=== PATIENT | female | born 2000 | race American Indian/Alaskan Native ===

== ENCOUNTER 2019-09-07 19:30 | Emergency (ER) | payer SELFPAY ==
[2019-09-07 20:35] LABS: HCG Qualitative,Urine Negative (Negative)
--- NOTE | 2019-09-07 21:07 | XRay Report ---
CHEST 2 VIEWS INDICATION / CLINICAL INFORMATION: cough. COMPARISON: None available. FINDINGS: SUPPORT DEVICES: None. HEART / MEDIASTINUM: No significant abnormality. LUNGS / PLEURA: No significant pulmonary or pleural abnormality. No pneumothorax. ADDITIONAL FINDINGS: No significant additional findings. IMPRESSION: 1. No acute findings. Signer Name: Siena Wood MD Signed: 09/07/2019 9:03 PM Workstation Name: [id number]
--- NOTE | 2019-09-07 21:41 | Emergency Department Report ---
ED General Adult HPI - General Chief complaint: Upper Respiratory Infection Stated complaint: CHEST PAIN, LOSS OF TASTE AND SMELL PUI?: Yes Time Seen by Provider: 09/07/19 21:03 Source: patient, RN notes reviewed Mode of arrival: Ambulatory Limitations: No Limitations - History of Present Illness Initial comments: During the entire history and physical examination, I am chaperoned by nurse Sridevi Yen During the entire history and physical examination, I had on complete personal protective equipment. Patient is a 18-year-old female, who is not known to myself previously, who does not have a local primary care doctor, who denies chronic medical conditions, who endorses recreational cannabis consumption, states that she is not , and states that she has not delivered or given within the past 6 weeks, presenting to the ER with acute on chronic cough x1 week, no phlegm production, left-sided breast wall pain, intermittent, for a few days, which does not radiate to the back, arms or neck, without vomiting, diaphoresis or exertional shortness of breath, without DVT or pulmonary embolism risk factors, who also describes painless loss of taste and smell x2 days. There is no complaint of headache, neck pain, abdominal pain, dysuria, focal extremity weakness and or numbness. The patient does admit that she has not been self isolating and self quarantine during the current coronavirus pandemic. Left-sided breast wall pain is throbbing, does not radiate anywhere, increases with palpation and decreases with rest. -: Gradual, days(s), week(s), month(s) Severity scale (0 -10): 6 Quality: other Consistency: other Improves with: other Worsens with: other Associated Symptoms: other - Related Data Previous Rx's Medication Instructions Recorded Last Taken Type Albuterol Sulfate [Proair 90 mcg IH Q4HR PRN #2 [email or web address] 09/07/19 Unknown Rx Respiclick] Allergies Allergy/AdvReac Type Severity Reaction Status Date / Time No Known Allergies Allergy Unverified 11/29/18 16:27 ED Review of Systems ROS: Stated complaint: CHEST PAIN, LOSS OF TASTE AND SMELL Other details as noted in HPI Constitutional: denies: fever Eyes: denies: eye discharge ENT: denies: epistaxis Respiratory: cough Cardiovascular: denies: syncope Gastrointestinal: denies: abdominal pain Genitourinary: denies: dysuria Musculoskeletal: myalgia Skin: as per HPI Neurological: as per HPI, weakness Psychiatric: as per HPI Hematological/Lymphatic: as per HPI ED Past Medical Hx - Past Medical History Previous Medical History?: No - Surgical History Past Surgical History?: No - Social History Smoking Status: Never Smoker Substance Use Type: Alcohol - Medications Home Medications: Home Medications Medication Instructions Recorded Confirmed Last Taken Type Albuterol Sulfate [Proair 90 mcg IH Q4HR PRN #2 [email or web address] 09/07/19 Unknown Rx Respiclick] ED Physical Exam - General Limitations: No Limitations General appearance: alert, in no apparent distress - Head Head exam: Present: atraumatic, normocephalic - Eye Eye exam: Present: normal appearance, EOMI. Absent: nystagmus - ENT ENT exam: Present: normal exam, normal orophraynx, mucous membranes moist, normal external ear exam - Neck Neck exam: Present: normal inspection, full ROM. Absent: tenderness, meningismus - Respiratory Respiratory exam: Present: normal lung sounds bilaterally, chest wall tenderness, other (There is left-sided reproducible breast wall tenderness and thoracic rib wall tenderness. There is no redness, pus or streaking. There are no vesicles. Chaperoned by nurse Vivek). Absent: respiratory distress - Cardiovascular Cardiovascular Exam: Present: regular rate, normal rhythm, normal heart sounds. Absent: bradycardia, irregular rhythm, systolic murmur, diastolic murmur, rubs, gallop - GI/Abdominal GI/Abdominal exam: Present: soft. Absent: distended, tenderness, guarding, rebound, rigid, pulsatile mass - Extremities Exam Extremities exam: Present: normal inspection, full ROM, other (2+ pulses noted in the bilateral upper and lower extremities. There is no palpable cord. negative Homans sign. Muscular compartments are soft. The pelvis is stable.). Absent: pedal edema, calf tenderness - Back Exam Back exam: Present: normal inspection. Absent: tenderness, CVA tenderness (R), CVA tenderness (L), paraspinal tenderness, vertebral tenderness - Neurological Exam Neurological exam: Present: alert, oriented X3, normal gait, other (No facial droop. Tongue midline. Extraocular movements intact bilaterally. Facial sensation intact to light touch in V1, V2, V3 distribution bilaterally. 5 and a 5 strength in 4 extremities. Sensation intact to light touch in 4 extremities.). Absent: motor sensory deficit - Psychiatric Psychiatric exam: Present: normal affect, normal mood - Skin Skin exam: Present: warm, dry, intact, normal color. Absent: rash ED Course Vital Signs 09/07/19 19:32 Temperature 97.6 F Pulse Rate 95 H Respiratory 18 Rate Blood Pressure 131/76 [Right] O2 Sat by Pulse 100 Oximetry ED Medical Decision Making - Lab Data Vital Signs 09/07/19 19:32 Temperature 97.6 F Pulse Rate 95 H Respiratory 18 Rate Blood Pressure 131/76 [Right] O2 Sat by Pulse 100 Oximetry - EKG Data -: EKG Interpreted by Ri - EKG Data 09/07/19 21:39 There is no prior EKG available for comparison. Sinus rhythm, 88 bpm, normal axis, normal intervals, high left ventricular voltage, minimal motion artifact. The EKG is unremarkable. The EKG is not a STEMI. - Radiology Data Radiology results: report reviewed, image reviewed X-ray of the chest is negative for acute disease - Medical Decision Making Differential diagnosis, include but not limited to: Costochondritis, bronchitis, viral syndrome, coronavirus Assessment and plan: 18-year-old female, who is afebrile, with reassuring vital signs, clinically sober, laying on a cellular phone upon initial entry into the room, with no pulmonary embolism or DVT risk factors, low risk by Wells criteria, not tachycardic, tachypneic or hypoxic, perc negative, with repro ducible chest wall pain, without evidence of abscess, cellulitis, pneumothorax, or vesicular disease, with probable subacute COVID. Describes recommendations to self isolate and quarantine. Also recommended discontinuation of cannabis consumption. Patient is suitable for trial of outpatient management. Described natural history of COVID to the patient. She endorses that she is reliable to follow-up as an outpatient. Return precautions are reviewed. Critical care attestation.: If time is entered above; I have spent that time in minutes in the direct care of this critically ill patient, excluding procedure time. ED Disposition Clinical Impression: Suspected 2019 novel coronavirus infection, Bronchitis Disposition: DC- TO HOME OR SELFCARE Is pt being admited?: No Does the pt Need Aspirin: No Condition: Stable Additional Instructions: We recommend that the patient discontinue cannabis and marijuana consumption, and avoid secondhand exposure to smoke products, tobacco products, marijuana. Patient most likely has coronavirus. Recommend that patient self isolate and quarantine, wash hands often, thoroughly and frequently, and maintain social distancing. Recommend follow-up with an outpatient primary care doctor for checkup within 3 to 5 days. Recommend avoiding the elderly, and those with chronic medical conditions, and extremes of age. Patient may take [id number] Tylenol, 650 mg by mouth, every 4-6 hours as needed for pain. Patient may take the cough medication as needed. Maximum daily dose of Tylenol to not exceed 3 g per 24 hours. Please return to the emergency room right away with new pain, worsening pain, migration of pain, rectal vomiting, change in mental status, confusion, inability to tolerate liquid feeds, new, worsened or different symptoms not pre sent on the initial emergency room evaluation. At this point in time, patient is excused from work for the next 14 days, however, she may be cleared to go to work earlier than that by following up with her primary care doctor. Referrals: IDANIA YOUSIF MD [Staff Physician] - 3-5 Days [facility] [Provider Group] - 3-5 Days Forms: Work/School Release Form(ED)
== END 2019-09-07 22:30 | disposition home or self-care (01) ==
LOC: ED 19:30
DX: J40 Bronchitis, not specified as acute or chronic (principal); Z20.828 Contact with and (suspected) exposure to other viral communicable diseases
CPT/HCPCS: 71046; 81025; 93005